=== PATIENT | female | born 1975 | race Caucasian/White ===

== ENCOUNTER 2021-06-01 10:02 | Inpatient (IN) | payer OTHER, SELFPAY ==
[~2021-06-01] VITALS: Ht 165.1 cm; Wt 78.5 kg
[2021-06-01] MEDS ORDERED: METHYLERGONOVINE 0.2 MG/ML AMP IM PRN (10:20)
[2021-06-01] MEDS ORDERED: MISOPROSTOL 25 MCG TAB VG SCH (10:20)
[2021-06-01] MEDS ORDERED: CARBOPROST 250 MCG/ML AMP IM PRN (10:20)
[2021-06-01] MEDS ORDERED: PROMETHAZINE 25 MG/ML VIAL IVP PRN (10:20)
[2021-06-01] MEDS ORDERED: OXYTOCIN 10 UNITS/ML VIAL IM SCH (10:20)
[2021-06-01] MEDS ORDERED: NALBUPHINE 10 MG/ML AMP IVP PRN (10:20)
[2021-06-01 11:15] LABS: BASOPHILS % (AUTO) 0.6 % (0.0-2.0); EOSINOPHILS % (AUTO) 0.3 % (0.0-4.0); HEMATOCRIT 35.1 % (36-48); LYMPHOCYTES # (AUTO) 0.8 K/uL (2.5-16.5); LYMPHOCYTES % (AUTO) 12.4 % (20.5-51.1); MEAN CORPUSCULAR HEMOGLOBIN 31 pg (27-31); MEAN CORPUSCULAR HGB CONC 34 g/dL (33-37); MONOCYTES # (AUTO) 0.5 K/uL (0.8-1.0); MONOCYTES % (AUTO) 7.7 % (1.7-9.3); NEUTROPHILS # (AUTO) 4.9 K/uL (1.8-7.7); PLATELET COUNT (AUTO) 235 K/uL (140-450); RED BLOOD CELL COUNT(AUTO) 3.86 MIL/uL (4.20-5.40); RED CELL DISTRIBUTION WIDTH 14.6 % (11.6-13.7); WHITE BLOOD COUNT (AUTO) 6.2 K/uL (4.8-10.8)
[2021-06-01 11:27] LABS: BILIRUBIN,URINE 2+ (NEGATIVE); BLOOD, URINE TRACE-I (NEGATIVE); COLOR,URINE YELLOW (YELLOW); NITRITE, URINE NEGATIVE (NEGATIVE); UGLUCOSE NEGATIVE (NEGATIVE)
[2021-06-01 11:34] LABS: APPEARANCE,URINE SLIGHTLY HAZY (CLEAR)
[2021-06-01 11:36] LABS: ALBUMIN 2.1 g/dL (3.4-5.0); ANION GAP 15.1 (8-16); CARBON DIOXIDE 22.4 mmol/L (21-32); CREATININE 0.9 mg/dL (0.6-1.3); POTASSIUM 3.5 mmol/L (3.5-5.1)
[2021-06-01 11:42] LABS: RBC,URINE 0-5 /HPF (0-5)
[2021-06-01 11:44] LABS: LEUKOCYTE ESTERASE ,URINE 1+ (NEGATIVE); WBC,URINE 0-5 /HPF (0-5)
[2021-06-01] MEDS: LACTATED RINGERS 1,000 ML IV SCH ×2 (12:15→20:54)
[2021-06-01] MEDS ORDERED: PNV91TAB8 PO (19:16)
[2021-06-01] MEDS ORDERED: FOLI0.8C PO (19:17)
[2021-06-02] MEDS ORDERED: ZOLPIDEM 5 MG TAB PO ONE (00:45)
[2021-06-02] MEDS ORDERED: MISOPROSTOL 25 MCG TAB ONE (00:58)
[2021-06-02] MEDS: LACTATED RINGERS 1,000 ML IV SCH ×5 (02:20→19:05)
--- NOTE | 2021-06-02 08:38 | NUR ---
PATIENT HAS BEEN SCREENED AND CATEGORIZED LOW NUTRITION RISK. PATIENT WILL BE SEEN WITHIN 7 DAYS OF ADMISSION. 06/07/[address]
[2021-06-02] MEDS ORDERED: OXYTOCIN 20 UNITS in LACTATED RINGERS 1,000 ML IV SCH ×2 (09:30→20:05)
[2021-06-02] MEDS ORDERED: OXYTOCIN 20 UNITS/LR PREMIX 1,000 ML IV ONE ×2 (09:35→20:06)
[2021-06-02] MEDS ORDERED: ROPIVACAINE 0.2%/NS PREMIX 200 ML EPI ONE (13:14)
[2021-06-02] MEDS ORDERED: ROPIVACAINE 0.2%/NS PREMIX 100 ML EPI SCH (13:50)
[2021-06-02] MEDS ORDERED: CITRIC ACID/SODIUM CITRATE 30 ML UDC PO SCH (19:05)
[2021-06-02] MEDS ORDERED: MORPHINE PRES FREE 10 MG/10 ML AMP IV ONE (19:46)
[2021-06-02] MEDS ORDERED: MIDAZOLAM 2 MG/2 ML VIAL ONE (19:47)
[2021-06-02] MEDS ORDERED: LIDOCAINE MPF 2% 100 MG/5 ML VIAL INJ ONE (19:48)
[2021-06-02] MEDS ORDERED: ceFAZolin 1,000 MG VIAL ONE (19:54)
[2021-06-02] MEDS ORDERED: PROMETHAZINE 25 MG/ML VIAL IVP PRN (20:05)
[2021-06-02] MEDS ORDERED: METHYLERGONOVINE 0.2 MG/ML AMP IM PRN (20:05)
[2021-06-02] MEDS ORDERED: MEASLES, MUMPS, AND RUBELLA 1 VIAL SQVAC ONE (20:05)
[2021-06-02] MEDS ORDERED: oxyCODONE/APAP 5/325 MG 1 TAB TAB PO PRN (20:05)
--- NOTE | 2021-06-02 20:20 | NUR ---
ASSISTED IN DELIVERY OF TWIN BABIES, BABY A WAS DELIVERED AT 2022, BABY B DELIVERED AT 2023, BOTH BABIES ARE STABLE AND IN NO DISTRESS, WILL CONTINUE TO MONITOR. BOTH RTS ATTENDED THE
[2021-06-02] MEDS ORDERED: NALOXONE 0.4 MG/ML VIAL IVP PRN ×3 (20:35)
[2021-06-02] MEDS ORDERED: HYDROmorphone 1 MG/ML AMP IVP PRN (20:35)
[2021-06-02] MEDS ORDERED: ONDANSETRON 4 MG/2 ML VIAL IVP PRN ×2 (20:35)
[2021-06-02] MEDS ORDERED: MEPERIDINE 25 MG/ML SYR IVP PRN (20:35)
[2021-06-02] MEDS ORDERED: NALBUPHINE 10 MG/ML AMP IVP PRN (20:35)
[2021-06-02] MEDS ORDERED: diphenhydrAMINE 50 MG/ML VIAL IVP PRN ×2 (20:35)
[2021-06-03] MEDS: KETOROLAC 30 MG/ML VIAL IM/IVP SCH ×3 (00:01→12:12)
[2021-06-03] MEDS ORDERED: OXYTOCIN 20 UNITS/LR PREMIX 1,000 ML IV ONE ×2 (01:57→17:25)
[2021-06-03] MEDS: OXYTOCIN 20 UNITS in LACTATED RINGERS 1,000 ML IV SCH ×3 (02:09→17:41)
[2021-06-03] MEDS ORDERED: oxyCODONE/APAP 5/325 MG 1 TAB TAB PO PRN ×2 (08:00)
[2021-06-03 08:11] LABS: BASOPHILS % (AUTO) 0.3 % (0.0-2.0); EOSINOPHILS % (AUTO) 0.2 % (0.0-4.0); HEMATOCRIT 37.3 % (36-48); HEMOGLOBIN 12.5 g/dL (12.0-16.0); LYMPHOCYTES # (AUTO) 0.9 K/uL (2.5-16.5); MEAN CORPUSCULAR HEMOGLOBIN 30 pg (27-31); MEAN CORPUSCULAR HGB CONC 33 g/dL (33-37); MEAN CORPUSCULAR VOLUME 90.7 fL (80-94); MONOCYTES # (AUTO) 0.9 K/uL (0.8-1.0); MONOCYTES % (AUTO) 6.9 % (1.7-9.3); NEUTROPHILS # (AUTO) 11.8 K/uL (1.8-7.7); PLATELET COUNT (AUTO) 226 K/uL (140-450); RED BLOOD CELL COUNT(AUTO) 4.11 MIL/uL (4.20-5.40); RED CELL DISTRIBUTION WIDTH 14.5 % (11.6-13.7); WHITE BLOOD COUNT (AUTO) 13.7 K/uL (4.8-10.8)
[2021-06-03] MEDS ORDERED: bisacodyL 10 MG SUPP RC SCH (09:00)
[2021-06-03 09:24] LABS: LYMPHOCYTES % (AUTO) 6.3 % (20.5-51.1); NEUTROPHILS % (AUTO) 86.3 % (42.2-75.2)
[2021-06-03] MEDS: IBUPROFEN 600 MG TAB PO SCH ×2 (18:34→23:56)
[2021-06-03] MEDS: SIMETHICONE 80 MG TAB.CHEW PO PRN (18:34)
[2021-06-03] MEDS ORDERED: LACTATED RINGERS 1,000 ML IV SCH (19:05)
[2021-06-03] MEDS ORDERED: ACETAMINOPHEN EXTRA STRENGTH 500 MG TAB PO PRN (19:05)
[2021-06-04] MEDS ORDERED: CAMERA MC ONE (03:52)
[2021-06-04] MEDS: IBUPROFEN 600 MG TAB PO SCH (08:46)
[2021-06-04] MEDS: SIMETHICONE 80 MG TAB.CHEW PO PRN (08:47)
== END 2021-06-04 13:45 | disposition home or self-care (01) | DRG 539 ==
LOC: MLD 10:02 → OBSVTOIN 10:27 → MFCC 06-02 22:20
PROVIDERS: ADMIT Obstetrics & Gynecology; ATTEND Obstetrics & Gynecology
PROC: 10D00Z1 Extraction of Products of Conception, Low, Open Approach (ICD-10-PCS; 2021-06-02)
PROC: 0UB70ZZ Excision of Bilateral Fallopian Tubes, Open Approach (ICD-10-PCS; principal; 2021-06-02 19:30)
DX: O32.6XX1 Maternal care for compound presentation, fetus 1 (principal); Z37.2 Twins, both liveborn; O32.1XX2 Maternal care for breech presentation, fetus 2; Z20.822 Contact with and (suspected) exposure to COVID-19; O30.003 Twin pregnancy, unspecified number of placenta and unspecified number of amniotic sacs, third trimester; Z3A.37 37 weeks gestation of pregnancy; Z30.2 Encounter for sterilization
CPT/HCPCS: 36415; 59200; 76810; 80053; 81001; 85025; 86592; 86886; 86900; 86901; 87086; 87653-90; 88302; G0378; J0690; J1885; J2001; J2210; J2250; J2270; J2300; J2550; J2590; J2795; J3490; J7060; J7120; Q0092